=== PATIENT | male | born 1960 | race Caucasian/White ===

== ENCOUNTER 2022-08-06 21:39 | Inpatient (IN) | payer MEDICARE, OTHER ==
[~2022-08-06] VITALS: Ht 170.2 cm; Wt 81.6 kg
--- NOTE | 2022-08-06 22:10 | NUR ---
PT TAKEN TO CT VIA [facility]
--- NOTE | 2022-08-06 22:12 | NUR ---
COVID SWAB DONE AND SENT TO LAB
--- NOTE | 2022-08-06 22:13 | NUR ---
[facility] AAOX3. NOT IN RESP DISTRESS. BROUGHT IN FOR AGITATION AND NEEDS MEDICAL CLEARANCE FOR GEROPSYCH ADMISSION. PT IS ALSO COMPLAININGOF A BMID BACK PAIN. PT IS UMER AND COOPERATIVE AT THIS TIME. WAS AT THE BEDSIDE FOR EVAL. ORDERS RECEIVED, NOTED AND CARRIED OUT.
--- NOTE | 2022-08-06 22:32 | NUR ---
PT BACK FROM CT
--- NOTE | 2022-08-06 22:49 | NUR ---
PT UA COLLECTED AND SENT TO LAB
[2022-08-06 23:22] LABS: BASOPHILS % (AUTO) 0.7 % (0.0-2.0); HEMATOCRIT 36 % (39-51); HEMOGLOBIN 11.9 g/dL (13.5-17.5); LYMPHOCYTES # (AUTO) 1.5 K/uL (0.8-4.8); LYMPHOCYTES % (AUTO) 21.6 % (20.0-44.0); MEAN CORPUSCULAR HGB CONC 33 g/dl (31.0-36.0); MEAN CORPUSCULAR VOLUME 94 fL (80-96); MONOCYTES # (AUTO) 0.9 K/uL (0.1-1.30); MONOCYTES % (AUTO) 12.7 % (2.0-12.0); NEUTROPHILS # (AUTO) 4.5 K/uL (1.8-8.9); PLATELET COUNT (AUTO) 287 K/uL (150-450)
[2022-08-06 23:22] LABS: BILIRUBIN,URINE NEGATIVE (NEGATIVE); COLOR,URINE YELLOW (YELLOW); LEUKOCYTE ESTERASE ,URINE NEGATIVE (NEGATIVE); NITRITE, URINE NEGATIVE (NEGATIVE); PROTEIN,URINE 100 mg/dl (NEGATIVE); UGLUCOSE >=1000 mg/dL (NEGATIVE); UROBILINOGEN,URINE 0.2 EU/dL (0.2)
[2022-08-06 23:27] LABS: BACTERIA,URINE Rare /HPF (None Seen); RBC,URINE 0-2 /HPF (0-2); SQUAMOUS EPITHELIAL CELL,UR Few /HPF (None Seen)
[2022-08-06 23:35] LABS: CALCIUM, SERUM 10.3 mg/dL (8.5-10.1); CARBON DIOXIDE 29 mmol/L (21-32); CHLORIDE 102 mmol/L (98-107); CREATININE 1.4 mg/dL (0.6-1.3); SODIUM SERUM 137 mmol/L (136-145); UREA NITROGEN, BLOOD 25 mg/dL (7-18)
[2022-08-06 23:37] LABS: GLUCOSE 444 mg/dL (74-106)
--- NOTE | 2022-08-06 23:39 | NUR ---
BS 444; DR. JULIANA GUZMAN AWARE
[2022-08-06 23:41] LABS: ALANINE AMINOTRANSFERASE 24 U/L (12-78); ALCOHOL, BLOOD < 3 mg/dL (0-0); ALKALINE PHOSPHATASE 125 U/L (46-116); ASPARTATE AMINOTRANSFERASE 16 U/L (15-37); BILIRUBIN,DIRECT 0.1 mg/dL (0.0-0.2); BILIRUBIN,TOTAL 0.3 mg/dL (0.2-1.0); TOTAL PROTEIN, SERUM 7.6 g/dL (6.4-8.2)
[2022-08-06 23:43] LABS: ACETAMINOPHEN 0 ug/ml (10-30)
--- NOTE | 2022-08-06 23:53 | NUR ---
RAC #20G INSERTED AND FLUIDS INTIATED
[2022-08-07] MEDS ORDERED: INSULIN REGULAR, HUMAN 100 UNIT/ML 10 ML VIAL SQ ONE
[2022-08-07] MEDS ORDERED: IV NS 0.9% 1,000 ML IV ONE
[2022-08-07] MEDS ORDERED: ACETAMINOPHEN 325 MG TABLET PO ONE
--- NOTE | 2022-08-07 01:55 | NUR ---
SOLIAL WORKER AT BEDSIDE FOR HOLD EVAL
--- NOTE | 2022-08-07 02:14 | NUR ---
REPORT GIVEN TO LEONIE DILLON.
--- NOTE | 2022-08-07 03:08 | NUR ---
IV REMOVED. AND PT TRANSFERRED TO GPS VIA [facility].
[2022-08-07] MEDS ORDERED: MAGNESIUM HYDROXIDE 30 ML UDC PO PRN (03:30)
[2022-08-07] MEDS ORDERED: MAG HYDROX/AL HYDROX/SIMETH 30 ML UDC PO PRN (03:30)
[2022-08-07] MEDS ORDERED: ATOR40TA PO (03:38)
[2022-08-07] MEDS ORDERED: CARV3.122 PO (03:41)
[2022-08-07] MEDS ORDERED: CLOP75TA15 PO (03:42)
[2022-08-07] MEDS ORDERED: DOCU100C36 PO (03:43)
[2022-08-07] MEDS ORDERED: ENOX40DI SQ (03:45)
[2022-08-07] MEDS ORDERED: BISA10SU11 RC (03:45)
[2022-08-07] MEDS ORDERED: FAMO20TA8 PO (03:47)
[2022-08-07] MEDS ORDERED: SACU1TAB PO (03:47)
[2022-08-07] MEDS ORDERED: INSU100V39 SQ (03:48)
[2022-08-07] MEDS ORDERED: HYDR-3972 PO (03:51)
[2022-08-07] MEDS ORDERED: INSU100V7 SQ (03:53)
[2022-08-07] MEDS ORDERED: NITR0.4T48 SL (03:54)
[2022-08-07] MEDS ORDERED: OLAN5TAB3 PO (03:55)
[2022-08-07] MEDS ORDERED: QUET50TA PO (03:56)
[2022-08-07] MEDS ORDERED: SENN-261 PO (03:57)
[2022-08-07] MEDS ORDERED: BLOOD SUGAR DIAGNOSTIC 1 EACH STRIP IN ONE (04:00)
--- NOTE | 2022-08-07 04:08 | NUR ---
GPS RN NOTE, PATIENT NEEDS INSULIN SLIDING SCALE AND A MED RECONCILIATION. PAGED [facility] AND IN FORMED BENY MEJIA DNP OF MY FINDINGS. BENY MEJIA DNP ORDERED MILD INSULIN SLIDING SCALE AND SAID TO ENDORSE TO A.M. SHIFT NURSE TO ASK ROUNDING M.D. TO RECONCILE PATIENT'S MEDICATION. WILL CONTINUE TO MONITOR THIS PATIENT WITH THE HELP OF STAFF.
[2022-08-07] MEDS ORDERED: DEXTROSE 50%-WATER 50 ML DISP.SYRIN IV PRN (04:30)
[2022-08-07 04:48] VITALS: BP 123/78
--- NOTE | 2022-08-07 05:26 | NUR ---
RN NOTES : ADMISSION NOTES: ADMITTED THIS 62Y/O MALE PATIENT ADMIT FROM [facility] , INITIALLY FROM [facility]. ADMITTED TO 5150 HOLD DTO, PER HOLD PT. INCREASED AGITATION,CONFUSION AND UNABLE TO REDIRECTED,YELLING SCRAMING FOR NO REASON ATTEMPTING TO GET OUT OF BED. UPON FACE TO FACE ASSESSMENT PATIENT IS A&O X1,DISORGNIZED ANXIOUS ,EASILY AGITATED, POOR EYE CONTACT ,DISORGNIZED,RESTLESS,PARANOID,POOR DECISION MAKING,JUMPING FROM ONE TOPIC TO THE NEXT ,DENIES SI /HI AT THIS TIME, PT. IS POOR HISTORIAN, POOR INSIGHT ,POOR JUDGEMENT , BOTH MD AWARE AND NOTIFIED OF THE ADMISSION, BELONGINGS CONTRABAND WERE DONE , PT. REFUSED SIGNS ADMISSION CONSENT PAPER DUE TO TIRED , CONFUSED,ENCOURAGED PT. TO TAKE SHOWER, PT. RIGHTS DISCUSS BY DRUG SAFETY ASSOCIATE , PROVIDE THE PT. WITH HANDBOOK, AND MEDICATIONS GUIDE, ENVIRONMENTAL SAFETY CHECK DONE, ENCOURAGED PT. VERBALIZED ANY FEELING CONCERN TO STAFF, ORIENT TO UNIT POLICY, NO ACUTE DISTRESS NOTED,VITAL SIGNS WNL ,DENIES ANY PAIN AT THIS TIME,WILL CONTINUE TO MONITOR FOR Q15 SAFETY AND BEHAVIOR.
--- NOTE | 2022-08-07 06:19 | NUR ---
RN NOTE: CALLED PRATIK TRIVEDI [phone], AND LEFT MESSAGE PATIENT'S ADMISSION AT GPS UNIT.
[2022-08-07] MEDS: BLOOD SUGAR DIAGNOSTIC 1 EACH STRIP IN SCH ×4 (07:53→22:04)
[2022-08-07] MEDS: INSULIN REGULAR, HUMAN 100 UNIT/ML 3 ML VIAL SQ PRN ×4 (07:54→22:06)
[2022-08-07 08:00] VITALS: BP 137/107
--- NOTE | 2022-08-07 09:53 | NUR ---
Dr. Flores in the unit and seen pt. and was told to reconcile the meds.
[2022-08-07] MEDS: DIVALPROEX SODIUM 125 MG TABLET.DR PO SCH ×2 (10:00→20:50)
[2022-08-07] MEDS: OLANZAPINE 2.5 MG TABLET PO SCH (10:00)
--- NOTE | 2022-08-07 10:00 | NUR ---
RN Notes: Received pt. awake in bed, responsive to staffs, no distress and no agitation noted. Pt. ate 100% for breakfast and BS is226 and 4 units of Humulin R given SQ. PT. is cooperative to care. Pt. seen by the psychiatrist, pt. oriented in the unit and presented with unit policies. Needs attended and will continue to monitor for safety.
[2022-08-07] MEDS ORDERED: NITROGLYCERIN 0.4 MG/TAB BOTTLE SL PRN (11:00)
[2022-08-07] MEDS ORDERED: BISACODYL SUPP (10 MG) 10 MG/SUPP.RECT SUPP.RECT RC PRN (11:00)
[2022-08-07] MEDS: clonazePAM 0.5 MG TABLET PO PRN (14:00)
--- NOTE | 2022-08-07 14:06 | NUR ---
Pt. is anxious, irritable and yelling. Klonopin prn given and will continue to monitor.
[2022-08-07 16:00] VITALS: BP 140/95
[2022-08-07] MEDS: CARVEDILOL 3.125 MG TABLET PO SCH (16:12)
[2022-08-07] MEDS: DOCUSATE SODIUM 100 MG CAPSULE PO SCH (16:12)
--- NOTE | 2022-08-07 20:17 | NUR ---
RN NOTES: RECEIVED PT RESTING IN HER BED AWAKE ALERT, CONFUSED, DISORGANIZED. PARANOID, DELUSIONAL, ANXIOUS, RESTLESS, EASILY GETS AGITATED. NEEDY, DEMANDING, HYPERVERBAL, LOUD TALKATIVE TO SELF,ATTEMPTING TO GET OUT THE BED , NONREDIRECTABLE ,MED COMPLIANT.NEEDS FREQUENT REDIRECTIONS ENCOURAGED TO VERBALIZED ANY FEELING OR CONCERN, WILL CONTINUE TO MONITOR Q 15 MIN FOR SAFETY AND BEHAVIOR.
[2022-08-07 20:41] VITALS: BP 129/83
[2022-08-07] MEDS: ATORVASTATIN 40 MG TABLET PO SCH (21:33)
[2022-08-07] MEDS: INSULIN GLARGINE, 100 UNIT/ML CARTRIDGE SQ SCH (22:05)
[2022-08-08 06:46] LABS: BASOPHILS # (AUTO) 0.1 K/uL (0.0-0.2); BASOPHILS % (AUTO) 0.9 % (0.0-2.0); EOSINOPHILS % (AUTO) 1.8 % (0.0-6.0); HEMATOCRIT 34 % (39-51); HEMOGLOBIN 11.5 g/dL (13.5-17.5); LYMPHOCYTES # (AUTO) 2.1 K/uL (0.8-4.8); LYMPHOCYTES % (AUTO) 27.9 % (20.0-44.0); MEAN CORPUSCULAR HGB CONC 34 g/dl (31.0-36.0); MEAN CORPUSCULAR VOLUME 92 fL (80-96); MONOCYTES # (AUTO) 0.7 K/uL (0.1-1.30); MONOCYTES % (AUTO) 9.8 % (2.0-12.0); NEUTROPHILS # (AUTO) 4.5 K/uL (1.8-8.9); NEUTROPHILS % (AUTO) 59.6 % (43.0-81.0); PLATELET COUNT (AUTO) 277 K/uL (150-450); RED BLOOD CELL COUNT(AUTO) 3.71 MIL/uL (4.5-6.0); WHITE BLOOD COUNT (AUTO) 7.6 K/uL (4.3-11.0)
[2022-08-08 07:13] LABS: ALBUMIN 2.6 g/dL (3.4-5.0); BILIRUBIN,TOTAL 0.4 mg/dL (0.2-1.0); CALCIUM, SERUM 9.6 mg/dL (8.5-10.1); CREATININE 1.1 mg/dL (0.6-1.3); POTASSIUM 4.1 mmol/L (3.5-5.1); TOTAL PROTEIN, SERUM 6.9 g/dL (6.4-8.2)
[2022-08-08 08:00] VITALS: BP 132/98
[2022-08-08] MEDS: BLOOD SUGAR DIAGNOSTIC 1 EACH STRIP IN SCH ×4 (08:04→22:05)
[2022-08-08] MEDS: INSULIN REGULAR, HUMAN 100 UNIT/ML 3 ML VIAL SQ PRN ×4 (08:42→22:08)
[2022-08-08] MEDS ORDERED: TYL2T PO (08:43)
[2022-08-08] MEDS ORDERED: NA P133E RC (08:43)
[2022-08-08] MEDS: CLOPIDOGREL BISULFATE 75 MG TABLET PO SCH (08:43)
[2022-08-08] MEDS ORDERED: MAG30ORA PO (08:43)
[2022-08-08] MEDS ORDERED: DEXT38GE12 PO (08:43)
[2022-08-08] MEDS ORDERED: GLUC1KIT IM (08:43)
[2022-08-08] MEDS ORDERED: ACET-868 PO (08:43)
[2022-08-08] MEDS ORDERED: ACET-2605 PO (08:43)
[2022-08-08] MEDS: DOCUSATE SODIUM 100 MG CAPSULE PO SCH ×2 (08:43→17:50)
[2022-08-08] MEDS: CARVEDILOL 3.125 MG TABLET PO SCH ×2 (08:44→17:49)
[2022-08-08] MEDS: OLANZAPINE 2.5 MG TABLET PO SCH (08:44)
[2022-08-08] MEDS: DIVALPROEX SODIUM 125 MG TABLET.DR PO SCH ×2 (08:44→21:08)
[2022-08-08] MEDS: clonazePAM 0.5 MG TABLET PO PRN ×3 (08:44→15:49)
[2022-08-08] MEDS: FAMOTIDINE (20 MG) 20 MG TABLET PO SCH (08:44)
[2022-08-08] MEDS: Z GUARD REMEDY 4 OZ OINT TP SCH (08:45)
--- NOTE | 2022-08-08 08:45 | NUR ---
NURSE NOTE: PT AGITATED AT THIS TIME. CLONAZEPAM PRN ADMINISTERED ORDERED. WILL CONT TO MONITOR.
--- NOTE | 2022-08-08 09:45 | NUR ---
NURSE NOTE: PT SLEEPING AT THIS TIME. CLONAZEPAM EFFECTIVE. WILL CONT TO MONITOR.
[2022-08-08] MEDS: ACETAMINOPHEN 325 MG TABLET PO PRN (13:54)
--- NOTE | 2022-08-08 13:55 | NUR ---
NURSE NOTES: PT C/O PAIN AT THIS TIME. TYLENOL PO ADMINISTERED ORDERED. WILL CONT PLAN OF CARE.
--- NOTE | 2022-08-08 14:35 | NUR ---
NURSE NOTE: PT SLEEPING AT THIS TIME. NO S/S OF PAIN, TYL EFFECTIVE AT THIS TIME. WILL CONT TO MONITOR.
--- NOTE | 2022-08-08 15:22 | NUR ---
NURSE NOTE: PT ANXIOUS AT THIS TIME. ATTEMPTED TO GIVE CLONAZEPAM BUT WHEN I WENT BACK TO ADMINISTER PT WAS SLEEPING AND I WAS NOT ABLE TO WAKE HIM UP. RETURNED MED TO OMNICEL AT THIS TIME. WILL CONT TO MONITOR.
--- NOTE | 2022-08-08 15:50 | NUR ---
NURSE NOTE: PT ANXIOUS AT THIS TIME. CLONAZEPAM ADMINISTERED ORDERED. PT TOLERATED WELL. WILL CONT TO MONITOR.
[2022-08-08 16:00] VITALS: BP 107/72
[2022-08-08 20:41] VITALS: BP 111/61
[2022-08-08] MEDS: ATORVASTATIN 40 MG TABLET PO SCH (21:07)
[2022-08-08] MEDS: INSULIN GLARGINE, 100 UNIT/ML CARTRIDGE SQ SCH (22:07)
[2022-08-09] MEDS: clonazePAM 0.5 MG TABLET PO PRN (02:14)
--- NOTE | 2022-08-09 02:15 | NUR ---
RN NOTES: ANXIETY PT. C/O FEELING ANXIOUS,RESTLESS,YELLING SCREAMING PRN KLONOPIN 0.5 MG PO GIVEN PER PT. REQUEST,WILL CONTINUE TO MONITOR.
--- NOTE | 2022-08-09 07:22 | NUR ---
WOUND CARE CONSULT: PT PRESENTS WITH RT ANTERIOR LOWER LEG RAISED AREA WITH DRY ESCHAR, DRY WOUNDS TO TOES AND RASH TO GROIN FOLDS AND PERINEUM, PRESENT ON ADMISSION. PT IS INCONTINENT OF URINE. DPM CONSULT TO BE CALLED THIS AM. RECOMMENDATIONS MADE FOR SKIN PROTECTION. DISCUSSED WITH NURSING STAFF. MD IN AGREEMENT WITH PLAN OF CARE.
[2022-08-09 08:00] VITALS: BP 119/75
[2022-08-09] MEDS: BLOOD SUGAR DIAGNOSTIC 1 EACH STRIP IN SCH ×4 (08:01→21:28)
[2022-08-09] MEDS: INSULIN REGULAR, HUMAN 100 UNIT/ML 3 ML VIAL SQ PRN ×4 (08:05→21:32)
[2022-08-09] MEDS: DOCUSATE SODIUM 100 MG CAPSULE PO SCH ×2 (08:48→17:17)
[2022-08-09] MEDS: FAMOTIDINE (20 MG) 20 MG TABLET PO SCH (08:48)
[2022-08-09] MEDS: CLOPIDOGREL BISULFATE 75 MG TABLET PO SCH (08:48)
[2022-08-09] MEDS: OLANZAPINE 2.5 MG TABLET PO SCH (08:48)
[2022-08-09] MEDS: DIVALPROEX SODIUM 125 MG TABLET.DR PO SCH ×2 (08:49→20:06)
[2022-08-09] MEDS: CARVEDILOL 3.125 MG TABLET PO SCH ×2 (08:50→17:18)
[2022-08-09] MEDS: CLOTRIMAZOLE 1% 15 GM TUBE TP SCH ×2 (08:53→17:19)
[2022-08-09] MEDS: Z GUARD REMEDY 4 OZ OINT TP SCH (08:58)
--- NOTE | 2022-08-09 09:24 | NUR ---
SHAKIRA Initial Discharge Plan: Patient currently resides at [facility] [address], [place] [address]; ([phone]). SHAKIRA spoke with rebecca Hussein who stated that pt is not welcomed back and would need a different facility. She reported that they are unable to manage pt. She reported if this technical writer and editor is unable to find a placement to contact [facility] for assistance. SHAKIRA will work with the MD, Family, and Treatment team to help coordinate appropriate discharge.
--- NOTE | 2022-08-09 09:24 | NUR ---
SHAKIRA Clinical Note: Pt placed on a 5150 hold for danger to others and GD. Pt was brought to the hospital due to being aggressive at the facility and agitated. Patient currently resides at [address] [address]; ([phone]). SHAKIRA spoke with rebecca Hussein who stated that pt is not welcomed back and would need a different facility. She reported that they are unable to manage pt. She reported if this food writer is unable to find a placement to contact [facility] for assistance.
[2022-08-09] MEDS: ACETAMINOPHEN 325 MG TABLET PO PRN ×2 (11:26→19:58)
--- NOTE | 2022-08-09 11:26 | NUR ---
Pt c/o leg pain 04/09 will confine to monitor .
--- NOTE | 2022-08-09 13:28 | NUR ---
SHAKIRA Family Contact: SHAKIRA spoke with pt's Carmen ([phone]) to gather collateral and discuss treatment plan. [facility] due to not being able to manage pt's behavior. She stated for this marine underwriter to send clinicals to [facility]. Addendum: 08/09/22 at 1332 by SHAKIRA BURNETT requested to speak to Dr. Robles. SHAKIRA notified doctor.
--- NOTE | 2022-08-09 13:40 | NUR ---
SHAKIRA Family Contact: SHAKIRA contacted pt's Camilo ([phone]) to discuss treatment and discharge plan. She stated that she is the DPOA and will fax the documents. She reported when pt is stable for discharge she will be picking pt up. Addendum: 08/09/22 at 1355 by SHAKIRA BURNETT wrong patient information
--- NOTE | 2022-08-09 14:12 | NUR ---
Treatment Plan: Pt appeared labile and refused to sign.
[2022-08-09 16:00] VITALS: BP 116/82
[2022-08-09 20:44] VITALS: BP 101/68
[2022-08-09] MEDS: ATORVASTATIN 40 MG TABLET PO SCH (21:02)
[2022-08-09] MEDS: INSULIN GLARGINE, 100 UNIT/ML CARTRIDGE SQ SCH (21:33)
[2022-08-09] MEDS: TEMAZEPAM 7.5 MG CAPSULE PO PRN (22:47)
[2022-08-10] MEDS: clonazePAM 0.5 MG TABLET PO PRN ×2 (02:06→11:21)
[2022-08-10] MEDS: BLOOD SUGAR DIAGNOSTIC 1 EACH STRIP IN SCH ×4 (07:41→21:13)
[2022-08-10] MEDS: INSULIN REGULAR, HUMAN 100 UNIT/ML 3 ML VIAL SQ PRN ×4 (07:43→21:28)
[2022-08-10 08:00] VITALS: BP 124/90
[2022-08-10] MEDS: DOCUSATE SODIUM 100 MG CAPSULE PO SCH ×3 (09:00→17:06)
[2022-08-10] MEDS: SACUBITRIL/VALSARTAN 1 EACH TABLET PO SCH ×3 (09:00→17:07)
[2022-08-10] MEDS: CARVEDILOL 3.125 MG TABLET PO SCH ×2 (09:05→17:00)
[2022-08-10] MEDS: OLANZAPINE 2.5 MG TABLET PO SCH (09:05)
[2022-08-10] MEDS: DIVALPROEX SODIUM 125 MG TABLET.DR PO SCH ×2 (09:07→20:33)
[2022-08-10] MEDS: FAMOTIDINE (20 MG) 20 MG TABLET PO SCH (09:07)
[2022-08-10] MEDS: CLOPIDOGREL BISULFATE 75 MG TABLET PO SCH (09:07)
[2022-08-10] MEDS: Z GUARD REMEDY 4 OZ OINT TP SCH (09:08)
[2022-08-10] MEDS: CLOTRIMAZOLE 1% 15 GM TUBE TP SCH ×2 (09:09→17:08)
--- NOTE | 2022-08-10 09:11 | NUR ---
SHAKIRA Family Contact: SHAKIRA contacted pt's Carmen ([phone]) and stated [facility] denied due to behavioral issues. She wanted this insurance underwriter sales to send clinicals to [facility]. SHAKIRA gave her options [facility] or [facility]. She stated that she will tour the facilities.
--- NOTE | 2022-08-10 09:20 | NUR ---
GPS RN NOTE COLACE AND ENTRESTO MEDICATION SCHEDULED AT 0900 WAS NOT AVAILABLE IN THE UNIT. FOLLOWED UP WITH THE PHARMACIST AND THEY WILL DELIVER.
--- NOTE | 2022-08-10 09:26 | NUR ---
SNF Referral: SW sent clinicals to [facility] per pt's request for placement. SW sent H & P, progress notes, and medication list. Attn to admissions: Ronda (F:[phone]).
--- NOTE | 2022-08-10 09:28 | NUR ---
SNF Contact: SHAKIRA sent clinicals to [facility] ([phone]) and faxed it to Sandeep from admissions (F:[phone]) for placement option. SHAKIRA sent H & P, progress notes, and medication list. SHAKIRA received a call from [facility] who stated that they are unable to accept pt due to behavioral issues.
--- NOTE | 2022-08-10 09:56 | NUR ---
SNF Referral: SW sent clinicals to [facility] to May Keller ([phone]) for placement. SW sent H & P, progress notes, and medication list. May spoke with pt's Carmen to tour the facility tomorrow 08/11/2022.
--- NOTE | 2022-08-10 10:57 | NUR ---
GPS RN NOTE COLACE AND ENTRESTO MEDICATION REFILLED BY PHARAMCIST AND WAS ADMINISTERED TO PT ORDERED.
--- NOTE | 2022-08-10 11:11 | NUR ---
SNF Contact: SW received a call from [facility] to [facility] admin ([phone]) who stated pt is accepted and will be touring the facility tomorrow 08/10/2022.
[2022-08-10 16:00] VITALS: BP 103/76
--- NOTE | 2022-08-10 18:53 | NUR ---
GPS RN CLOSING NOTE PATIENT IN HIS ROOM RESTING IN BED COMFORTABLY. A/OX2, REORIENTED PT NEEDED. NO S/SX OF ACUTE DISTRESS NOTED. PATIENT REMAINS ANXIOUS, WITH PERIODS OF FORGETFULNESS AND SCREAMING, NEEDS CONSTANT REDIRECTION. NO VERBALIZATION OF THOUGHTS AND FEELINGS. SAFETY PRECAUTIONS MAINTAINED. WILL ENDORSE TO CERTIFIED ADAPTED PHYSICAL EDUCATOR NURSE FOR KRISTIN, SAFETY, AND BEHAVIOR MONITORING Q 15MINS.
[2022-08-10 20:06] VITALS: BP 106/75
[2022-08-10] MEDS: TEMAZEPAM 7.5 MG CAPSULE PO PRN (21:02)
[2022-08-10] MEDS: ATORVASTATIN 40 MG TABLET PO SCH (21:02)
[2022-08-10] MEDS: ACETAMINOPHEN 325 MG TABLET PO PRN (21:13)
[2022-08-10] MEDS: INSULIN GLARGINE, 100 UNIT/ML CARTRIDGE SQ SCH (21:24)
[2022-08-11] MEDS: ACETAMINOPHEN 325 MG TABLET PO PRN (07:03)
[2022-08-11 08:00] VITALS: BP 127/94
[2022-08-11] MEDS: CLOPIDOGREL BISULFATE 75 MG TABLET PO SCH (08:33)
[2022-08-11] MEDS: Z GUARD REMEDY 4 OZ OINT TP PRN (08:33)
[2022-08-11] MEDS: FAMOTIDINE (20 MG) 20 MG TABLET PO SCH (08:33)
[2022-08-11] MEDS: CARVEDILOL 3.125 MG TABLET PO SCH ×2 (08:33→17:19)
[2022-08-11] MEDS: OLANZAPINE 2.5 MG TABLET PO SCH (08:34)
[2022-08-11] MEDS: SACUBITRIL/VALSARTAN 1 EACH TABLET PO SCH ×2 (08:34→17:20)
[2022-08-11] MEDS: DIVALPROEX SODIUM 125 MG TABLET.DR PO SCH ×2 (08:34→20:46)
[2022-08-11] MEDS: DOCUSATE SODIUM 100 MG CAPSULE PO SCH ×2 (08:34→17:18)
[2022-08-11] MEDS: INSULIN REGULAR, HUMAN 100 UNIT/ML 3 ML VIAL SQ PRN ×4 (08:35→23:08)
[2022-08-11] MEDS: BLOOD SUGAR DIAGNOSTIC 1 EACH STRIP IN SCH ×4 (08:43→21:56)
[2022-08-11] MEDS: CLOTRIMAZOLE 1% 15 GM TUBE TP SCH ×2 (09:06→17:20)
[2022-08-11] MEDS: Z GUARD REMEDY 4 OZ OINT TP SCH (09:06)
--- NOTE | 2022-08-11 11:30 | NUR ---
NURSE NOTE: PT WORKED WITH PT NOW IN PAIN LEVEL 8-9. NORCO PO ADMINISTERED ORDERED. PT LYNDON WELL, WILL CONT TO MONITOR.
[2022-08-11] MEDS: HYDROCODONE/APAP 5/325MG TABLET PO PRN ×3 (11:33→22:40)
[2022-08-11] MEDS: clonazePAM 0.5 MG TABLET PO PRN ×2 (13:12→20:42)
[2022-08-11 16:00] VITALS: BP 115/84
--- NOTE | 2022-08-11 18:12 | NUR ---
GPS CLOSING NOTE PATIENT OBSERVED IN ROOM INTERMITTENTLY RESTING IN BED COMFORTABLY THROUGHOUT SHIFT. PATIENT REMAINED A/OX2,WITH REDIRECTION NEEDED. PATIENT C/O PAIN X2 ON SHIFT. RECEIVED NORCO @ 1133 & 1600. TOLERATED WELL. NO S/SX OF ANY ACUTE DISTRESS OBSERVED. PATIENT CONTINUES TO ALSO REMAIN ANXIOUS. RECEIVED KLONOPIN @ 1315. MEDICATION EFFECTIVE. NO VERBALIZATION OF NEGATIVE THOUGHTS OR FEELINGS. SAFETY PRECAUTIONS INTACT; BED LOW AND LOCKED, SIDE RAIL UP. WILL CONT TO MONITOR.
[2022-08-11 20:00] VITALS: BP 128/65
[2022-08-11] MEDS: ATORVASTATIN 40 MG TABLET PO SCH (21:57)
[2022-08-11] MEDS: INSULIN GLARGINE, 100 UNIT/ML CARTRIDGE SQ SCH (21:58)
[2022-08-11] MEDS: TEMAZEPAM 7.5 MG CAPSULE PO PRN (22:01)
[2022-08-12] MEDS: clonazePAM 0.5 MG TABLET PO PRN ×2 (05:03→18:15)
[2022-08-12 08:00] VITALS: BP 118/70
[2022-08-12] MEDS: BLOOD SUGAR DIAGNOSTIC 1 EACH STRIP IN SCH ×4 (08:14→21:48)
[2022-08-12] MEDS: FAMOTIDINE (20 MG) 20 MG TABLET PO SCH (08:15)
[2022-08-12] MEDS: CLOPIDOGREL BISULFATE 75 MG TABLET PO SCH (08:15)
[2022-08-12] MEDS: SENNOSIDES 8.6 MG TABLET PO PRN (08:15)
[2022-08-12] MEDS: OLANZAPINE 2.5 MG TABLET PO SCH (08:15)
[2022-08-12] MEDS: DIVALPROEX SODIUM 125 MG TABLET.DR PO SCH ×2 (08:15→21:20)
[2022-08-12] MEDS: CARVEDILOL 3.125 MG TABLET PO SCH ×2 (08:16→16:49)
[2022-08-12] MEDS: HYDROCODONE/APAP 5/325MG TABLET PO PRN (08:21)
[2022-08-12] MEDS: SACUBITRIL/VALSARTAN 1 EACH TABLET PO SCH ×2 (08:21→16:51)
[2022-08-12] MEDS: CLOTRIMAZOLE 1% 15 GM TUBE TP SCH ×2 (08:22→16:51)
[2022-08-12] MEDS: Z GUARD REMEDY 4 OZ OINT TP SCH (08:22)
[2022-08-12] MEDS: DOCUSATE SODIUM 100 MG CAPSULE PO SCH ×2 (09:02→16:48)
[2022-08-12] MEDS: INSULIN REGULAR, HUMAN 100 UNIT/ML 3 ML VIAL SQ PRN ×4 (10:22→22:37)
--- NOTE | 2022-08-12 15:00 | NUR ---
PAtient in recreational room, screaming anf triying to get out os carole chair. Patient states he wants to go home. Reoriented patient to time and place. He is not able to understand and continues screaming.
[2022-08-12 16:00] VITALS: BP 108/69
--- NOTE | 2022-08-12 16:51 | NUR ---
Probable Cause Hearing done and pt. after talking with the advocated has decided to be present at the certification review hearing. After considering all the evidence presented, the Hearing Referee upheld for the ground of GD.
--- NOTE | 2022-08-12 17:52 | NUR ---
RN Closing Note Patient AOx3 able to express his concerns. Patient screaming and banging on everything in front of him, disturbing peace in unit. Screaming "get me out of her" "Carmen, what happened to me" " Eric, what happened" "this is a night mare" "I need to be released" and tried to climb out of bed. reoriented patient to current situation and made him aware of unit expectations, continued screaming throughout shift. All safety precautions taken, call and table within reach and bed at lowest position. Although patient was screaming throughout shift, he was able to share in between saying were he grew up and talking about his grown kids. No Signs of distress or discomfort patient did not report pain .
[2022-08-12 20:00] VITALS: BP 140/89
[2022-08-12 20:20] VITALS: BP 140/84
[2022-08-12] MEDS: Z GUARD REMEDY 4 OZ OINT TP PRN (21:47)
[2022-08-12] MEDS: ATORVASTATIN 40 MG TABLET PO SCH (21:48)
[2022-08-12] MEDS: TEMAZEPAM 7.5 MG CAPSULE PO PRN (21:48)
--- NOTE | 2022-08-12 21:49 | NUR ---
RN NOTE: INSOMNIA PATIENT C/O INABILITY TO SLEEP AND REQUESTED TO TAKE SLEEPING MEDICINE. PER PATIENT REQUEST PRN RESTORIL 7.5 MG PO ADMINISTERED. WILL CONTINUE TO MONITOR FOR ANY CHANGES.
[2022-08-12] MEDS: INSULIN GLARGINE, 100 UNIT/ML CARTRIDGE SQ SCH (22:36)
[2022-08-13 08:00] VITALS: BP 129/98
[2022-08-13] MEDS: BLOOD SUGAR DIAGNOSTIC 1 EACH STRIP IN SCH ×4 (08:37→22:42)
[2022-08-13] MEDS: CLOTRIMAZOLE 1% 15 GM TUBE TP SCH ×2 (08:38→17:40)
[2022-08-13] MEDS: Z GUARD REMEDY 4 OZ OINT TP SCH (08:38)
[2022-08-13] MEDS: CLOPIDOGREL BISULFATE 75 MG TABLET PO SCH (08:43)
[2022-08-13] MEDS: FAMOTIDINE (20 MG) 20 MG TABLET PO SCH (08:43)
[2022-08-13] MEDS: DOCUSATE SODIUM 100 MG CAPSULE PO SCH ×2 (08:43→17:40)
[2022-08-13] MEDS: DIVALPROEX SODIUM 125 MG TABLET.DR PO SCH ×2 (08:43→21:34)
[2022-08-13] MEDS: SENNOSIDES 8.6 MG TABLET PO PRN (08:43)
[2022-08-13] MEDS: CARVEDILOL 3.125 MG TABLET PO SCH ×2 (08:44→17:39)
[2022-08-13] MEDS: OLANZAPINE 2.5 MG TABLET PO SCH (08:44)
[2022-08-13] MEDS: SACUBITRIL/VALSARTAN 1 EACH TABLET PO SCH ×2 (08:44→17:39)
[2022-08-13] MEDS: INSULIN REGULAR, HUMAN 100 UNIT/ML 3 ML VIAL SQ PRN ×4 (08:47→23:24)
--- NOTE | 2022-08-13 10:20 | NUR ---
SW Family Contact: SW spoke with patient's Carmen ([phone]) and she stated that she will be touring [place], [place], and [place] and will touch base with this entry writer to see which facility.
--- NOTE | 2022-08-13 10:20 | NUR ---
SNF Referral: SW sent clinicals to [facility] to olivia Wheeler ([phone]) for placement. SW sent H & P, progress notes, and medication list.
[2022-08-13] MEDS: ESCITALOPRAM OXALATE (10 MG) 10 MG TABLET PO SCH (10:53)
--- NOTE | 2022-08-13 10:58 | NUR ---
SHAKIRA Note: SW spoke with pt and discussed his discharge plan. SW mentioned that his Carmen is touring facilities at this time and will let us know which one she chooses. SW mentioned unsure if it will be long-term or short term and would need to discuss with his .
--- NOTE | 2022-08-13 11:39 | NUR ---
SNF Contact: received a call from [facility] to olivia Wheeler ([phone]) who stated pt is accepted.
[2022-08-13] MEDS: clonazePAM 0.5 MG TABLET PO PRN (13:11)
[2022-08-13 16:00] VITALS: BP 106/78
[2022-08-13 20:52] VITALS: BP 114/88
[2022-08-13] MEDS: ATORVASTATIN 40 MG TABLET PO SCH (21:34)
[2022-08-13] MEDS: INSULIN GLARGINE, 100 UNIT/ML CARTRIDGE SQ SCH (22:45)
[2022-08-14] MEDS: TEMAZEPAM 7.5 MG CAPSULE PO PRN (01:41)
--- NOTE | 2022-08-14 02:30 | NUR ---
operator notes: given restoril 7.5 mg prn for insomnia. effective. pt sleeping at this time. safety measures in place. will contimue to monior closely.
[2022-08-14] MEDS: HYDROCODONE/APAP 5/325MG TABLET PO PRN (05:57)
--- NOTE | 2022-08-14 06:00 | NUR ---
HOT METAL CAR OPERATOR NOTES: GIVEN NORCO 5/325 MG X2 TABS PRN PER PT"S REQUEST D/T RIGHT ABD PAIN. WILL MONITOR CLOSELY.
[2022-08-14 06:55] VITALS: BP 81/51
--- NOTE | 2022-08-14 06:55 | NUR ---
GPS RN NOTE, PATIENT HAD A CHANGE IN LOC AFTER HAVE 2 TABS OF NORCO 5-325 1 TAB PO Q4HR PRN. RAPID RESPONSE CALLED. PATIENT VITAL SIGNS ARE FOLLOWS TEMP 97.6, PULSE 66, B/P 81/51, RESPIRATIONS 12, SPO2 94 % ON 2 LITER OF O2 VIA NON REBREATHER. PAGED [employer] AND INFORMED KEITH ROSALES DNP OF MY FINDINGS. KEITH ROSALES ORDERED 1BAG OF 500ML OF NS AND 1 BAG LR 1000 ML AT 80ML / HR. ALL ORDERS NOTED AND CARRIED OUT WILL ENDORSE TO A.M. SHIFT NURSE FOR CONTINUATION OF CARE. Addendum: 08/14/22 at 2044 by LEONIE GREWAL RN ON 2 LITER OF O2 VIA NASAL CANNULA.
[2022-08-14] MEDS ORDERED: IV LR 1000 ML 1,000 ML IV ONE (07:30)
[2022-08-14 08:00] VITALS: BP 111/63
[2022-08-14] MEDS: BLOOD SUGAR DIAGNOSTIC 1 EACH STRIP IN SCH ×4 (08:05→22:09)
[2022-08-14] MEDS: DOCUSATE SODIUM 100 MG CAPSULE PO SCH ×2 (08:08→17:00)
[2022-08-14] MEDS: CARVEDILOL 3.125 MG TABLET PO SCH ×2 (08:08→17:00)
[2022-08-14] MEDS: SACUBITRIL/VALSARTAN 1 EACH TABLET PO SCH ×2 (08:11→17:00)
[2022-08-14] MEDS: DIVALPROEX SODIUM 125 MG TABLET.DR PO SCH ×2 (08:11→21:00)
[2022-08-14] MEDS: ESCITALOPRAM OXALATE (10 MG) 10 MG TABLET PO SCH (08:11)
[2022-08-14] MEDS: FAMOTIDINE (20 MG) 20 MG TABLET PO SCH (08:11)
[2022-08-14] MEDS: CLOPIDOGREL BISULFATE 75 MG TABLET PO SCH (08:12)
[2022-08-14] MEDS: OLANZAPINE 2.5 MG TABLET PO SCH (08:12)
--- NOTE | 2022-08-14 08:12 | NUR ---
GPS/RN SCHEDULED FOR 0900 PO MEDS NOT GIVEN. PT RESPONDS APPROPRIATELY, VSS BUT UNABLE TO TAKE MEDS AT THIS TIME. MD GARDNER
[2022-08-14 08:25] LABS: BASOPHILS % (AUTO) 0.4 % (0.0-2.0); EOSINOPHILS % (AUTO) 2.4 % (0.0-6.0); HEMATOCRIT 32 % (39-51); HEMOGLOBIN 10.8 g/dL (13.5-17.5); LYMPHOCYTES # (AUTO) 1.9 K/uL (0.8-4.8); LYMPHOCYTES % (AUTO) 18.8 % (20.0-44.0); MEAN CORPUSCULAR HGB CONC 34 g/dl (31.0-36.0); MEAN CORPUSCULAR VOLUME 93 fL (80-96); MONOCYTES # (AUTO) 0.8 K/uL (0.1-1.30); MONOCYTES % (AUTO) 7.5 % (2.0-12.0); NEUTROPHILS # (AUTO) 7.2 K/uL (1.8-8.9); NEUTROPHILS % (AUTO) 70.9 % (43.0-81.0); PLATELET COUNT (AUTO) 277 K/uL (150-450); RED BLOOD CELL COUNT(AUTO) 3.47 MIL/uL (4.5-6.0); WHITE BLOOD COUNT (AUTO) 10.2 K/uL (4.3-11.0)
[2022-08-14 08:35] LABS: CARBON DIOXIDE 28 mmol/L (21-32); CHLORIDE 107 mmol/L (98-107); CREATININE 1.2 mg/dL (0.6-1.3); GLUCOSE 138 mg/dL (74-106); POTASSIUM 3.6 mmol/L (3.5-5.1); SODIUM SERUM 142 mmol/L (136-145); UREA NITROGEN, BLOOD 22 mg/dL (7-18)
[2022-08-14 08:45] VITALS: BP 124/78
[2022-08-14] MEDS: CLOTRIMAZOLE 1% 15 GM TUBE TP SCH ×2 (08:55→17:51)
[2022-08-14] MEDS: Z GUARD REMEDY 4 OZ OINT TP SCH (08:56)
--- NOTE | 2022-08-14 12:31 | NUR ---
GPS/RN BS =172 NO COVERAGE GIVEN PT REFUSED TO EAT.
[2022-08-14 16:00] VITALS: BP 127/84
--- NOTE | 2022-08-14 17:51 | NUR ---
GPS/RN XK=345 NO COVERAGE PT REFUSED TO EAT. PT REFUSED 1700 MEDS WELL
[2022-08-14 20:23] VITALS: BP 149/98
--- NOTE | 2022-08-14 20:47 | NUR ---
RN NOTES:RECEIVED PATIENT LYING IN BED, WITH BREATHING EVEN AND NONLABORED EASILY AROUSED,EASILY AGITATED, PARANOID,DISHELVED NEEDS FREQUENTLY REDIRECTIONS , ENCOURAGED PT. TO VERBALIZED ANY FEELING OR CONCERN, NO ACUTE DISTRESS NOTED.COMPLIANT WITH MEDICATIONS. WILL CONTINUE . MONITORING FOR SAFETY AND BEHAVIOR.
--- NOTE | 2022-08-14 21:00 | NUR ---
GPS RN NOTE, SUDHA ERAZO GLAZIER HELPER ON FLOOR DOING ROUNDS. INFORMED SUDHA ERAZO AT 0557 PATIENT HAD RIGHT SIDE ABDOMINAL PAIN AT 8 OUT OF 10 ON THE PAIN SCALE AND WAS GIVEN NORCO 5-325 2 TABS PO Q4HRS PRN. I INFORMED SUDHA ERAZO GLAZIER HELPER PATIENT'S BLOOD PRESSURE DECREASED AND FLUIDS WERE ORDERED BY KEITH ROSALES DNP TO STABILIZE PATIENT BLOOD PRESSURE. SUDHA ERAZO ORDERED CT ABDOMEN WITHOUT CONTRAST ON 08/15/22 AT 0900 AND PUT PATIENT NPO EXCEPT MEDS FOR BREAKFAST. ALL ORDERS NOTED AND CARRIED OUT WILL CONTINUE TO MONITOR THIS PATIENT WITH THE HELP OF STAFF.
[2022-08-14] MEDS: ATORVASTATIN 40 MG TABLET PO SCH (21:23)
[2022-08-14] MEDS: INSULIN GLARGINE, 100 UNIT/ML CARTRIDGE SQ SCH (22:00)
--- NOTE | 2022-08-14 22:29 | NUR ---
RN NOTES: PT. REFUSED NIGHT SCHEDULE MEDS PO DEPAKOTE 125 MG, LIPITOR 40MG , AND INSULIN COVERAGE , LANTUS , ENCOURAGED PT. TO TAKE PER PT. I AM FEELING TIRED SLEEPING ,I DONT WANT TAKE, CHARGE NURSE MADE AWARE, WILL CONTINUTY WITH CARE. PT. BLOOD SUGAR 207, REFUSED COVERAGE AND LANTUS , PER PT. STATES I DONT WANT TAKE MY BLOOD SUGAR IS FINE , WILL CONTINUE WITH CARE.
[2022-08-15] MEDS ORDERED: HYDROCODONE/APAP 5/325MG TABLET PO PRN (03:00)
[2022-08-15 08:00] VITALS: BP 122/91
[2022-08-15] MEDS: GLUCERNA SHAKE 237 ML CAN PO SCH ×2 (08:00→17:19)
[2022-08-15] MEDS: BLOOD SUGAR DIAGNOSTIC 1 EACH STRIP IN SCH ×4 (08:25→22:12)
[2022-08-15] MEDS: ESCITALOPRAM OXALATE (10 MG) 10 MG TABLET PO SCH (08:42)
[2022-08-15] MEDS: DIVALPROEX SODIUM 125 MG TABLET.DR PO SCH ×2 (08:42→22:11)
[2022-08-15] MEDS: DOCUSATE SODIUM 100 MG CAPSULE PO SCH ×2 (08:42→17:17)
[2022-08-15] MEDS: Z GUARD REMEDY 4 OZ OINT TP SCH (08:43)
[2022-08-15] MEDS: CARVEDILOL 3.125 MG TABLET PO SCH ×2 (08:43→17:17)
[2022-08-15] MEDS: OLANZAPINE 2.5 MG TABLET PO SCH (08:43)
[2022-08-15] MEDS: CLOTRIMAZOLE 1% 15 GM TUBE TP SCH ×2 (08:43→17:19)
[2022-08-15] MEDS: FAMOTIDINE (20 MG) 20 MG TABLET PO SCH (08:43)
[2022-08-15] MEDS: CLOPIDOGREL BISULFATE 75 MG TABLET PO SCH (09:13)
[2022-08-15] MEDS: SACUBITRIL/VALSARTAN 1 EACH TABLET PO SCH ×2 (09:16→17:19)
[2022-08-15] MEDS: INSULIN REGULAR, HUMAN 100 UNIT/ML 3 ML VIAL SQ PRN ×3 (11:58→22:19)
[2022-08-15 16:00] VITALS: BP 121/76
[2022-08-15 21:05] VITALS: BP 123/53
[2022-08-15] MEDS: ATORVASTATIN 40 MG TABLET PO SCH (22:10)
[2022-08-15] MEDS: INSULIN GLARGINE, 100 UNIT/ML CARTRIDGE SQ SCH (22:17)
--- NOTE | 2022-08-16 01:00 | NUR ---
Pt A/O x1 with periods of confusion verbally responsive to voice and tactile stimuli. Med compliant during shift and compliant with care. BS check done @ 2200 355 with 10 u insulin sliding scale and Lantus 15 u. No s/s of hypo/hyperglycemia noted. NPO after midnight for CT of abdomen scheduled in the morning. Pt understands to be NPO after midnight and will endorse to next shift. Frequent visual check done for safety. Will continue to monitor.
[2022-08-16] MEDS: BLOOD SUGAR DIAGNOSTIC 1 EACH STRIP IN SCH ×4 (07:40→21:09)
[2022-08-16 08:00] VITALS: BP 107/74
[2022-08-16] MEDS: GLUCERNA SHAKE 237 ML CAN PO SCH ×2 (08:10→16:04)
[2022-08-16] MEDS: SACUBITRIL/VALSARTAN 1 EACH TABLET PO SCH ×2 (08:31→16:06)
[2022-08-16] MEDS: CLOPIDOGREL BISULFATE 75 MG TABLET PO SCH (08:32)
[2022-08-16] MEDS: CARVEDILOL 3.125 MG TABLET PO SCH ×2 (08:32→16:03)
[2022-08-16] MEDS: ESCITALOPRAM OXALATE (10 MG) 10 MG TABLET PO SCH (08:32)
[2022-08-16] MEDS: DOCUSATE SODIUM 100 MG CAPSULE PO SCH ×2 (08:32→16:19)
[2022-08-16] MEDS: FAMOTIDINE (20 MG) 20 MG TABLET PO SCH (08:32)
[2022-08-16] MEDS: OLANZAPINE 2.5 MG TABLET PO SCH (08:32)
[2022-08-16] MEDS: CLOTRIMAZOLE 1% 15 GM TUBE TP SCH ×2 (08:33→16:35)
[2022-08-16] MEDS: Z GUARD REMEDY 4 OZ OINT TP SCH (08:33)
[2022-08-16] MEDS: DIVALPROEX SODIUM 125 MG TABLET.DR PO SCH ×2 (08:33→20:40)
[2022-08-16] MEDS: INSULIN REGULAR, HUMAN 100 UNIT/ML 3 ML VIAL SQ PRN ×4 (08:35→21:10)
--- NOTE | 2022-08-16 11:08 | NUR ---
SHAKIRA Family Contact: SW contacted patient's Carmen ([phone]) and left a voicemail to call this senior medical writer back which facility she would want pt to go too.
--- NOTE | 2022-08-16 15:02 | NUR ---
SHAKIRA Family Contact: SHAKIRA spoke with patient's Carmen ([phone]) who stated that she toured [facility] and [facility]. She stated from those two facilities she would want pt to go to [facility]. However, she did request for this technical writer to send clinicals to two facilities [facility] and [facility].
--- NOTE | 2022-08-16 15:03 | NUR ---
SNF Referral: Per pt's 's request, SW sent H & P, progress notes, and medication list for placement to two nursing facilities. [facility] - attn: Shannan (F:[phone]). [facility] - attn: Holly (F:[phone])
[2022-08-16 16:00] VITALS: BP 92/55
[2022-08-16 19:45] VITALS: BP 115/84
[2022-08-16] MEDS: ATORVASTATIN 40 MG TABLET PO SCH (21:08)
[2022-08-16] MEDS: INSULIN GLARGINE, 100 UNIT/ML CARTRIDGE SQ SCH (21:09)
--- NOTE | 2022-08-17 07:30 | NUR ---
RN OPENING NOTE PATIENT IS ASLEEP BUT EASILY AROUSABLE. ALERT, ORIENTED X 2. ON ROOM AIR, BREATHING UNLABORED AND NOT IN ANY FORM OF DISTRESS. RIGHT FOREARM IV INTACT AND PATENT. DENIES SUICIDAL IDEATION. ALL HOSPITAL SAFETY PRECAUTIONS IN PLACE. WILL CONTINUE TO MONITOR THROUGHOUT SHIFT.
[2022-08-17 08:00] VITALS: BP 108/83
[2022-08-17] MEDS: FAMOTIDINE (20 MG) 20 MG TABLET PO SCH (08:38)
[2022-08-17] MEDS: BLOOD SUGAR DIAGNOSTIC 1 EACH STRIP IN SCH ×4 (08:38→21:36)
[2022-08-17] MEDS: DOCUSATE SODIUM 100 MG CAPSULE PO SCH ×2 (08:38→17:07)
[2022-08-17] MEDS: ESCITALOPRAM OXALATE (10 MG) 10 MG TABLET PO SCH (08:38)
[2022-08-17] MEDS: OLANZAPINE 2.5 MG TABLET PO SCH (08:38)
[2022-08-17] MEDS: CARVEDILOL 3.125 MG TABLET PO SCH ×2 (08:39→17:07)
[2022-08-17] MEDS: CLOPIDOGREL BISULFATE 75 MG TABLET PO SCH (08:39)
[2022-08-17] MEDS: SACUBITRIL/VALSARTAN 1 EACH TABLET PO SCH ×2 (08:40→17:08)
[2022-08-17] MEDS: DIVALPROEX SODIUM 125 MG TABLET.DR PO SCH ×2 (08:40→21:35)
[2022-08-17] MEDS: CLOTRIMAZOLE 1% 15 GM TUBE TP SCH ×2 (08:40→17:09)
[2022-08-17] MEDS: Z GUARD REMEDY 4 OZ OINT TP SCH (08:41)
[2022-08-17] MEDS: GLUCERNA SHAKE 237 ML CAN PO SCH ×2 (08:41→17:07)
[2022-08-17] MEDS: INSULIN REGULAR, HUMAN 100 UNIT/ML 3 ML VIAL SQ PRN ×4 (08:47→21:42)
--- NOTE | 2022-08-17 11:42 | NUR ---
SNF Contact: SW contacted Holly ([phone]) from [facility] to follow up on the referral. She stated that they do not have any male beds available.
--- NOTE | 2022-08-17 13:40 | NUR ---
SNF Contact: SW received a call from [facility] - admission: Shannan ([phone])(P:[phone]) who stated that they cannot accept pt due to pt being a psych pt.
--- NOTE | 2022-08-17 13:41 | NUR ---
SHAKIRA Family Contact: SW contacted patient's Carmen ([phone]) and notified that [facility]- denied due to pt being psych and [facility] denied due to not having male bed. She did say she is agreeable of pt going to [facility].
[2022-08-17 16:00] VITALS: BP 105/65
--- NOTE | 2022-08-17 17:30 | NUR ---
RN NOTE BLOOD SUGAR 424 MG/DL. MD CANADA NOTIFIED. 10 UNITS INSULIN GIVEN PER SLIDING SCALE.
--- NOTE | 2022-08-17 18:48 | NUR ---
RN CLOSING NOTE PATIENT'S VITAL SIGNS REMAINED STABLE THROUGHOUT SHIFT. PATIENT IS WITHDRAWN, ISOLATIVE. PATIENT IS COMPLIANT WITH MEDS, NO EPISODES OF AGITATION NOTED. DENIES SUICIDAL IDEATION. ALL HOSPITAL SAFETY PRECAUTIONS IN PLACE. WILL ENDORSE TO DIELECTRIC PRESS OPERATOR NURSE.
[2022-08-17 21:01] VITALS: BP 104/73
[2022-08-17] MEDS: ATORVASTATIN 40 MG TABLET PO SCH (21:33)
[2022-08-17] MEDS: TEMAZEPAM 7.5 MG CAPSULE PO PRN (21:36)
[2022-08-17] MEDS: INSULIN GLARGINE, 100 UNIT/ML CARTRIDGE SQ SCH (21:38)
[2022-08-18] MEDS: BLOOD SUGAR DIAGNOSTIC 1 EACH STRIP IN SCH ×4 (07:40→21:23)
[2022-08-18] MEDS: INSULIN REGULAR, HUMAN 100 UNIT/ML 3 ML VIAL SQ PRN ×4 (07:45→22:51)
[2022-08-18] MEDS: GLUCERNA SHAKE 237 ML CAN PO SCH ×2 (07:49→16:37)
[2022-08-18 08:00] VITALS: BP 115/78
[2022-08-18] MEDS: SENNOSIDES 8.6 MG TABLET PO PRN (08:01)
[2022-08-18] MEDS: DIVALPROEX SODIUM 125 MG TABLET.DR PO SCH ×2 (08:01→21:20)
[2022-08-18] MEDS: ESCITALOPRAM OXALATE (10 MG) 10 MG TABLET PO SCH (08:01)
[2022-08-18] MEDS: SACUBITRIL/VALSARTAN 1 EACH TABLET PO SCH ×2 (08:01→16:37)
[2022-08-18] MEDS: CLOPIDOGREL BISULFATE 75 MG TABLET PO SCH (08:01)
[2022-08-18] MEDS: CLOTRIMAZOLE 1% 15 GM TUBE TP SCH ×2 (08:02→16:42)
[2022-08-18] MEDS: FAMOTIDINE (20 MG) 20 MG TABLET PO SCH (08:02)
[2022-08-18] MEDS: DOCUSATE SODIUM 100 MG CAPSULE PO SCH ×2 (08:02→16:40)
[2022-08-18] MEDS: CARVEDILOL 3.125 MG TABLET PO SCH ×2 (08:02→16:40)
[2022-08-18] MEDS: OLANZAPINE 2.5 MG TABLET PO SCH (08:02)
[2022-08-18] MEDS: Z GUARD REMEDY 4 OZ OINT TP SCH (09:47)
--- NOTE | 2022-08-18 09:51 | NUR ---
RN-CO: Notified Dr Quintero regarding patient's average blood sugar. Awaiting for order.
--- NOTE | 2022-08-18 10:18 | NUR ---
RN-CO: DR CANADA ORDERED TO INCREASE LANTUS TO 20 UNITS AT HS, NOTED.
[2022-08-18 16:00] VITALS: BP 130/90
[2022-08-18 19:56] VITALS: BP 104/74
[2022-08-18] MEDS: ATORVASTATIN 40 MG TABLET PO SCH (21:20)
[2022-08-18] MEDS: INSULIN GLARGINE, 100 UNIT/ML CARTRIDGE SQ SCH (22:49)
--- NOTE | 2022-08-19 07:12 | NUR ---
PATIENT'S BLOOD GLUCOSE LEVEL IS 189 MG/DL. WILL ENDORSE TO AM RN TO GIVE SSI PER PROTOCOL.
[2022-08-19] MEDS: BLOOD SUGAR DIAGNOSTIC 1 EACH STRIP IN SCH ×4 (07:13→22:01)
[2022-08-19 08:00] VITALS: BP 103/70
[2022-08-19] MEDS: GLUCERNA SHAKE 237 ML CAN PO SCH ×2 (08:15→17:32)
[2022-08-19] MEDS: DIVALPROEX SODIUM 125 MG TABLET.DR PO SCH ×2 (08:50→22:02)
[2022-08-19] MEDS: DOCUSATE SODIUM 100 MG CAPSULE PO SCH ×2 (08:50→16:39)
[2022-08-19] MEDS: ESCITALOPRAM OXALATE (10 MG) 10 MG TABLET PO SCH (08:50)
[2022-08-19] MEDS: CLOPIDOGREL BISULFATE 75 MG TABLET PO SCH (08:50)
[2022-08-19] MEDS: FAMOTIDINE (20 MG) 20 MG TABLET PO SCH (08:50)
[2022-08-19] MEDS: OLANZAPINE 2.5 MG TABLET PO SCH (08:50)
[2022-08-19] MEDS: INSULIN REGULAR, HUMAN 100 UNIT/ML 3 ML VIAL SQ PRN ×4 (08:54→22:17)
[2022-08-19] MEDS: CARVEDILOL 3.125 MG TABLET PO SCH ×2 (08:55→16:39)
[2022-08-19] MEDS: SACUBITRIL/VALSARTAN 1 EACH TABLET PO SCH ×2 (08:55→16:40)
[2022-08-19] MEDS: Z GUARD REMEDY 4 OZ OINT TP SCH (08:56)
[2022-08-19] MEDS: CLOTRIMAZOLE 1% 15 GM TUBE TP SCH ×2 (09:05→17:33)
[2022-08-19 16:00] VITALS: BP 117/75
--- NOTE | 2022-08-19 19:09 | NUR ---
RN-NOTES PATIENT IN BED AWAKE,A/O X2,CALM AND COOPERATIVE WITH STAFF,NO ACUTE DISTRESS NOTED. COMPLIANT WITH MEDICATIONS.NEEDS MAXIMUM ASSIST WITH ADL'S. NON AMBULATORY. COMPLIANT WITH MEDICATIONS. ABLE TO MAKE NEEDS KNOWN TO THE STAFF. ALL NEEDS ATTENDED AND ANTICIPATED. WILL ENDORSE TO INCOMING NURSE FOR COLLECTIONS AND CONTINUITY OF CARE.
[2022-08-19 20:00] VITALS: BP 111/71
--- NOTE | 2022-08-19 20:00 | NUR ---
FERRY TERMINAL SUPERVISOR GPS NOTE RCVD PT IN HIS BED , APPEARS SLEEPING , EASY TO AROUSE, BREATHING EVEN AND ULABORED @ RA. BED ALARM ON, SAFETY MEASURES NOTED, WILL CONT TO MONITOR AND ANTICIPATE PT'S NEEDS. Q 15 MIN RDS FOR PT'S SAFETY.
[2022-08-19] MEDS: ATORVASTATIN 40 MG TABLET PO SCH (22:01)
[2022-08-19] MEDS: INSULIN GLARGINE, 100 UNIT/ML CARTRIDGE SQ SCH (22:16)
--- NOTE | 2022-08-19 22:30 | NUR ---
PET ADOPTION COUNSELOR GPS NOTE PT'S BS 335 LANTUS 20 UNITS GIVEN AND REGULAR INSULIN 8 UNITS GIVEN ORDERED PER SLIDING SCALE, PT ALSO TOOK HIS DUE MEDICATIONS . OFFERED PT DRINKS/ FLUIDS, AND SNACKS , PER PT HE WILL ASK IF HE GETS HUNGRY BUT NOT AT THIS TIME , EDUCATED PT WITH THE USE OF CALL LIGHT IF HE NEEDS ANYTHING OR ANY ASSISTANCE, PT VERBALIZED UNDERSTANDING AT THIS TIME.
--- NOTE | 2022-08-20 02:56 | NUR ---
DIRECTOR OF MEDICAL EDUCATION GPS NOTE PT SLEEPING, EASY TO AROUSE, BREATHING EVEN AND UNLABORED NO S/SX OF DISTRESS OR DISCOMFORT NOTED, WILL CONT TO MONITOR AND ANTICIPATE NEEDS.
--- NOTE | 2022-08-20 05:51 | NUR ---
STORAGE BATTERY INSPECTOR AND TESTER GPS NOTE PT SLEPT MOSTLY THROUGH OUT THE NIGHT, EASY TO AROUSE, NO S/SX OF DISTRESS NOTED, WAS MED COMPLIANT DURING SHIFT. NO SIGNIFICANT CHANGE IN CONDITION NOTED. SAFETY PRECAUTIONS OBSERVED.
[2022-08-20] MEDS: BLOOD SUGAR DIAGNOSTIC 1 EACH STRIP IN SCH ×2 (06:41→12:19)
--- NOTE | 2022-08-20 06:41 | NUR ---
FIELD RECORDER CLOSING NOTE PT AWAKE AND CALM . AM SUGAR CHECK -OBTAINED 134, AM CARE TOLERATED BY PT. SAFETY MEASURES OBSERVED. WILL ENDORSE CONT OF CARE TO AM ONCOMING NURSE.
[2022-08-20] MEDS: INSULIN REGULAR, HUMAN 100 UNIT/ML 3 ML VIAL SQ PRN ×2 (06:49→12:21)
[2022-08-20 08:00] VITALS: BP 132/71
--- NOTE | 2022-08-20 08:05 | NUR ---
SW Discharge Note: Patient will be discharged to [facility] [place] [address] [place] [address]; ([phone]) via ambulance. Nathaly Keller from [facility] accepted pt and is welcoming pt today. Pt's Carmen ([phone]) is aware and agreeable. Pt appears to be alert and oriented x2 and is willing to go to the nursing facility. Pt denies visual/auditory hallucinations. Pt denies denies suicidal or homicidal ideation. Patient will follow up with Dr. Chaudhari, located at [address] [place] [address]; .) and (Button Sewer Hand) Dr. Flores [address], [place] [address]; ([phone]). Pt presented with euthymic mood and congruent affect.
[2022-08-20] MEDS: CLOTRIMAZOLE 1% 15 GM TUBE TP SCH (08:06)
[2022-08-20] MEDS: GLUCERNA SHAKE 237 ML CAN PO SCH (08:06)
[2022-08-20] MEDS: Z GUARD REMEDY 4 OZ OINT TP SCH (08:07)
[2022-08-20 08:10] VITALS: BP 132/71
[2022-08-20] MEDS: CARVEDILOL 3.125 MG TABLET PO SCH (08:10)
[2022-08-20] MEDS: SENNOSIDES 8.6 MG TABLET PO PRN (08:10)
[2022-08-20] MEDS: ESCITALOPRAM OXALATE (10 MG) 10 MG TABLET PO SCH (08:10)
[2022-08-20] MEDS: FAMOTIDINE (20 MG) 20 MG TABLET PO SCH (08:10)
[2022-08-20] MEDS: CLOPIDOGREL BISULFATE 75 MG TABLET PO SCH (08:10)
[2022-08-20] MEDS: DIVALPROEX SODIUM 125 MG TABLET.DR PO SCH (08:10)
[2022-08-20] MEDS: OLANZAPINE 2.5 MG TABLET PO SCH (08:11)
[2022-08-20] MEDS: DOCUSATE SODIUM 100 MG CAPSULE PO SCH (08:11)
[2022-08-20] MEDS: SACUBITRIL/VALSARTAN 1 EACH TABLET PO SCH (08:11)
--- NOTE | 2022-08-20 09:12 | NUR ---
Juma Robles UNHAIRING INSPECTOR ordered to D/C hold and D/C to [facility] and to follow up with psych and medical doctors. Travis ALLEN reconciled on meds to continue in the facility.
--- NOTE | 2022-08-20 13:30 | NUR ---
GPS/RN PT DISCHARGED TO [facility]. REPORT GIVEN TO FACILITY NURSE ANYI NOLAND. PT REFUSED TO LET NURSE TO TAKE PICTURES ON DISCHARGE. MEDS LIST, LABS RESULT, EXIT CARE AND H/P PROVIDED. NO SI OR HI AT THE TIME OF DISCHARGE. PT LEFT VIA AMBULANCE
== END 2022-08-20 13:30 | DRG 885 ==
LOC: ER 21:39 → GPS 08-07 01:56
PROVIDERS: ADMIT Nurse Practitioner Psychiatric/Mental Health; ATTEND Student in an Organized Health Care Education/Training Program
DX: F31.9 Bipolar disorder, unspecified (principal); I11.0 Hypertensive heart disease with heart failure; I50.33 Acute on chronic diastolic (congestive) heart failure; G81.94 Hemiplegia, unspecified affecting left nondominant side; I42.9 Cardiomyopathy, unspecified; F03.92 Unspecified dementia, unspecified severity, with psychotic disturbance; F03.94 Unspecified dementia, unspecified severity, with anxiety; F03.93 Unspecified dementia, unspecified severity, with mood disturbance; F23 Brief psychotic disorder; I25.10 Atherosclerotic heart disease of native coronary artery without angina pectoris; G93.89 Other specified disorders of brain; E11.40 Type 2 diabetes mellitus with diabetic neuropathy, unspecified; R13.0 Aphagia; I25.2 Old myocardial infarction; M20.40 Other hammer toe(s) (acquired), unspecified foot; Z91.81 History of falling; Y92.9 Unspecified place or not applicable; S09.90XA Unspecified injury of head, initial encounter; E83.42 Hypomagnesemia; W19.XXXA Unspecified fall, initial encounter; Z79.899 Other long term (current) drug therapy; Z73.6 Limitation of activities due to disability; R53.1 Weakness; R27.8 Other lack of coordination; Z79.4 Long term (current) use of insulin; Z79.02 Long term (current) use of antithrombotics/antiplatelets; Z79.01 Long term (current) use of anticoagulants; L60.3 Nail dystrophy
CPT/HCPCS: 36415; 70450-TC; 72131-TC; 80048-TC; 80053-TC; 80061-TC; 80076-TC; 80164-TC; 81001; 82962-TC; 83735-TC; 84484-TC; 85025-TC; 87081-TC; 97110-TC; 97116-TC; 97530-TC; C9803; G0480; J1815; J7030; J7040; J7120

== ENCOUNTER 2025-10-15 19:17 | Inpatient (IN) | payer BC, MEDICAID ==
[~2025-10-15] VITALS: Ht 162.6 cm; Wt 70.4 kg
[~2025-10-15 19:17] MED LIST: ACET-2605 PO; ACET-868 PO; ATOR40TA PO; BISA10SU11 RC; CARV3.122 PO; CLOP75TA15 PO; DEXT38GE12 PO; DOCU100C36 PO; ENOX40DI SQ; FAMO20TA8 PO; GLUC1KIT IM; HYDR-3972 PO; INSU100V39 SQ; INSU100V7 SQ; MAG30ORA PO; NA P133E RC; NITR0.4T48 SL; SACU1TAB PO; SENN-261 PO
[2025-10-15] MEDS ORDERED: TDAP [DIPH/PERTUSSIS/TET] 0.5 ML VIAL IM ONE (20:39)
[2025-10-15] MEDS: TDAP [DIPH/PERTUSSIS/TET] 0.5 ML VIAL IM ONE (20:44)
[2025-10-16 07:19] LABS: PLATELET COUNT (AUTO) 170 K/uL (150-450); RED BLOOD CELL COUNT(AUTO) 4.97 MIL/uL (4.5-6.0); RED CELL DISTRIBUTION WIDTH 14.6 % (11.5-15.0); WHITE BLOOD COUNT (AUTO) 8.2 K/uL (4.3-11.0)
[2025-10-16 07:30] LABS: CALCIUM, SERUM 8.9 mg/dL (8.5-10.1); CREATININE 1.1 mg/dL (0.6-1.3); SODIUM SERUM 142.0 mmol/L (136-145); UREA NITROGEN, BLOOD 31.0 mg/dL (7-18)
[2025-10-16] MEDS ORDERED: MULT-213 PO (09:31)
[2025-10-16] MEDS ORDERED: ATOR80TA PO (09:31)
[2025-10-16] MEDS ORDERED: MAGN400O6 PO (09:31)
[2025-10-16] MEDS ORDERED: ASPI-1420 PO (09:31)
[2025-10-16] MEDS ORDERED: APIX5TAB PO (09:31)
[2025-10-16] MEDS ORDERED: NIFE-34 PO (09:31)
[2025-10-16] MEDS ORDERED: ASCO500T20 PO (09:31)
[2025-10-16] MEDS ORDERED: CHOL100043 PO (09:31)
[2025-10-16] MEDS ORDERED: POLY17PO4 PO (09:31)
[2025-10-16] MEDS ORDERED: ESCI10TA PO (09:31)
[2025-10-16] MEDS ORDERED: HYDR-4077 PO (09:31)
[2025-10-16] MEDS ORDERED: MAGN400T30 PO (09:31)
[2025-10-16 11:00] VITALS: BP 158/102; TEMP 97.7; O2SAT 98
[2025-10-16] MEDS ORDERED: MAG HYDROX/AL HYDROX/SIMETH 30 ML UDC PO PRN (12:30)
[2025-10-16] MEDS ORDERED: MAGNESIUM HYDROXIDE 30 ML UDC PO PRN (12:30)
[2025-10-16] MEDS ORDERED: ZOLPIDEM TARTRATE 5 MG TABLET PO PRN (12:30)
[2025-10-16] MEDS ORDERED: ONDANSETRON HCL/PF 4 MG/2 ML VIAL IVP PRN (12:30)
[2025-10-16] MEDS ORDERED: Z GUARD REMEDY 4 OZ OINT TP PRN (12:30)
[2025-10-16] MEDS: IV 1/2NS 1000 ML 1,000 ML IV PRN (15:27)
[2025-10-16 16:00] VITALS: BP 115/89; TEMP 98.2; O2SAT 97
[2025-10-16 17:01] LABS: APPEARANCE,URINE CLEAR (CLEAR); BLOOD, URINE TRACE-INTA Ery/uL (NEGATIVE); LEUKOCYTE ESTERASE ,URINE 3+ (NEGATIVE); NITRITE, URINE NEGATIVE (NEGATIVE); UGLUCOSE NEGATIVE (NEGATIVE)
[2025-10-16 17:13] LABS: ADD URINE CULTURE YES; SQUAMOUS EPITHELIAL CELL,UR 0-2 /HPF (None Seen)
[2025-10-16 20:00] VITALS: BP 136/88; TEMP 98.4; O2SAT 95
[2025-10-17 06:24] LABS: PLATELET COUNT (AUTO) 171 K/uL (150-450); RED BLOOD CELL COUNT(AUTO) 4.63 MIL/uL (4.5-6.0); RED CELL DISTRIBUTION WIDTH 14.3 % (11.5-15.0); WHITE BLOOD COUNT (AUTO) 7.9 K/uL (4.3-11.0)
[2025-10-17 06:51] LABS: CALCIUM, SERUM 9.0 mg/dL (8.5-10.1); CREATININE 1.1 mg/dL (0.6-1.3); PHOSPHORUS 3.3 mg/dL (2.5-4.9); SODIUM SERUM 142.0 mmol/L (136-145); UREA NITROGEN, BLOOD 27.0 mg/dL (7-18)
[2025-10-17 07:21] LABS: LDL 59.0 mg/dL (0-99)
[2025-10-17 08:00] VITALS: BP 164/99; TEMP 98.2; O2SAT 96
[2025-10-17] MEDS: PANTOPRAZOLE 40 MG TABLET.DR PO SCH (08:03)
[2025-10-17] MEDS ORDERED: GLUTOSE 15 G GEL..GM. PO ONE (12:00)
[2025-10-17] MEDS ORDERED: MAGNESIUM HYDROXIDE 30 ML UDC PO PRN (12:00)
[2025-10-17] MEDS ORDERED: BISACODYL SUPP (10 MG) 10 MG/SUPP.RECT SUPP.RECT RC PRN (12:00)
[2025-10-17] MEDS ORDERED: NA PHOS,M-B/NA PHOS,DI-BA 1 EA ENEMA RC PRN (12:00)
[2025-10-17] MEDS: NEOMY SULF/BACITRAC ZN/POLY 15 GM TUBE TP SCH (12:18)
[2025-10-17] MEDS ORDERED: DEXTROSE 50%-WATER 50 ML DISP.SYRIN IV PRN (13:00)
[2025-10-17] MEDS ORDERED: GLUCAGON,HUMAN RECOMBINANT 1 MG/VIAL VIAL IM PRN (13:30)
[2025-10-17 16:00] VITALS: BP 151/98; TEMP 97.9; O2SAT 96
[2025-10-17] MEDS: INSULIN REGULAR, HUMAN 100 UNIT/ML 3 ML VIAL SQ PRN (16:40)
[2025-10-17] MEDS: CARVEDILOL 3.125 MG TABLET PO SCH (16:41)
[2025-10-17] MEDS: FAMOTIDINE (20 MG) 20 MG TABLET PO SCH (16:41)
[2025-10-17] MEDS: BLOOD SUGAR DIAGNOSTIC 1 EACH STRIP IN SCH (16:41)
[2025-10-17] MEDS: APIXABAN 5 MG TABLET PO SCH (16:42)
[2025-10-17] MEDS ORDERED: POLYETHYLENE GLYCOL 3350 17 GM POWD.PACK PO PRN (17:00)
[2025-10-17] MEDS ORDERED: BLOOD SUGAR DIAGNOSTIC 1 EACH STRIP IN SCH (17:30)
[2025-10-17 20:00] VITALS: BP 131/90; TEMP 97.2; O2SAT 97
[2025-10-17] MEDS: MAGNESIUM OXIDE 400 MG TABLET PO SCH (22:15)
[2025-10-17] MEDS: ATORVASTATIN 40 MG TABLET PO SCH (22:15)
[2025-10-17] MEDS: INSULIN GLARGINE, 100 UNIT/ML CARTRIDGE SQ SCH (22:23)
[2025-10-17 23:58] VITALS: BP 131/90; TEMP 97.2; O2SAT 97
[2025-10-18 07:00] VITALS: BP 152/88; TEMP 97.3; O2SAT 100
[2025-10-18] MEDS: CHOLECALCIFEROL 1,000 UNIT TABLET (VIT D3) PO SCH (09:11)
[2025-10-18] MEDS: ASCORBIC ACID 500 MG TABLET PO SCH (09:11)
[2025-10-18] MEDS: ESCITALOPRAM OXALATE (10 MG) 10 MG TABLET PO SCH (09:12)
[2025-10-18] MEDS: NIFEDIPINE XL 60 MG TAB.ER.24 PO SCH (09:12)
[2025-10-18] MEDS: MULTIVIT W/MINERALS 1 TAB TABLET PO SCH (09:12)
[2025-10-18] MEDS: ASPIRIN EC 81 MG TABLET.DR PO SCH (09:13)
[2025-10-18 15:00] VITALS: BP 125/88; TEMP 98.1; O2SAT 97
[2025-10-18 20:00] VITALS: BP 141/85; TEMP 98; TEMP 98.1; O2SAT 97
[2025-10-18] MEDS: ACETAMINOPHEN 325 MG TABLET PO PRN (22:10)
[2025-10-19 08:00] VITALS: BP 115/67; TEMP 98.1; O2SAT 98
[2025-10-19 16:00] VITALS: BP 130/80; TEMP 98.8; O2SAT 96
[2025-10-19 20:00] VITALS: BP 119/82; TEMP 98.8; O2SAT 92
[2025-10-20 08:00] VITALS: BP 130/84; TEMP 98.1; O2SAT 93
[2025-10-20 16:00] VITALS: BP 130/84; TEMP 97.9; O2SAT 95
[2025-10-20 20:00] VITALS: BP 139/89; TEMP 98.4; O2SAT 98
[2025-10-21 08:00] VITALS: BP 144/98; TEMP 98.2; O2SAT 97
[2025-10-21 16:00] VITALS: BP 142/89; TEMP 97.9; O2SAT 96
[2025-10-21 17:38] VITALS: BP 144/98
== END 2025-10-21 18:20 | DRG 605 ==
LOC: ER 19:19 → TELE 10-16 09:03 → MED 10-16 09:07
PROC: 05HB33Z Insertion of Infusion Device into Right Basilic Vein, Percutaneous Approach (ICD-10-PCS; principal; 2025-10-20)
DX: S60.811A Abrasion of right wrist, initial encounter (principal); I69.354 Hemiplegia and hemiparesis following cerebral infarction affecting left non-dominant side; I50.9 Heart failure, unspecified; L89.899 Pressure ulcer of other site, unspecified stage; Z79.02 Long term (current) use of antithrombotics/antiplatelets; Z79.01 Long term (current) use of anticoagulants; I11.0 Hypertensive heart disease with heart failure; E11.9 Type 2 diabetes mellitus without complications; S60.418A Abrasion of other finger, initial encounter; I25.2 Old myocardial infarction; W08.XXXA Fall from other furniture, initial encounter; Y92.009 Unspecified place in unspecified non-institutional (private) residence as the place of occurrence of the external cause; S50.312A Abrasion of left elbow, initial encounter; E78.5 Hyperlipidemia, unspecified; I25.10 Atherosclerotic heart disease of native coronary artery without angina pectoris; K59.00 Constipation, unspecified; Z79.4 Long term (current) use of insulin
CPT/HCPCS: 36415; 70450-TC; 71045-TC; 73080-TC; 73110; 73130-TC; 80048-TC; 80061-TC; 81001; 82962-TC; 83735-TC; 84100-TC; 84443-TC; 85025-TC; 87081-TC; 87086-TC; 90715; 97110-TC; 97112-TC; 97116-TC; 97530-TC; 97535-TC; A4223; G0378; J1610; J1815; J3490